=== PATIENT | female | born 1935 | race Caucasian/White ===

== ENCOUNTER 2022-04-16 14:44 | Inpatient (IN) ==
[2022-04-16 15:09] LABS: PCO2 Arterial 53 mmHg (35-45); PO2 Arterial 189 mmHg (80-100)
[2022-04-16 15:58] LABS: ABS Lymphocytes 0.5 10^3/ul (1.0-4.8); ABS Monocytes 1.3 10^3/ul (0-0.8); ABS Neutrophils 17.2 10^3/ul (1.5-7.7); Eosinophil % 0.1 %; Hematocrit 33 % (35-47); Hemoglobin 10.9 g/dL (12.0-16.0); Lymphocyte % 2.4 %; Mean Corpuscular HGB Conc 33 g/dL (31-36); Mean Corpuscular Hemoglobin 34 pg (27-31); Mean Corpuscular Volume 101 fL (80-97); Mean Platelet Volume 7.5 fL (7.4-10.4); Platelet Count 154 10^3/uL (150-450); Red Blood Count 3.26 10^6 /uL (3.70-4.87); Red Cell Distribution Width 14 % (10-15); White Blood Count 18.9 10^3/uL (3.5-10.8)
[2022-04-16 16:33] LABS: Albumin 3.7 g/dL (3.2-5.2); Albumin/Globulin Ratio 1.6 (1-3); Calcium 8.7 mg/dL (8.6-10.3); Globulin 2.3 g/dL (2-4); Potassium 4.7 mmol/L (3.5-5.0); Total Bilirubin 0.9 mg/dL (0.2-1.0); eGFR CKD-EPI 84.5 (>60)
[2022-04-16 17:21] LABS: High Sensitivity Troponin 1 Hr 6 pg/mL (<15)
[2022-04-16] MEDS ORDERED: Piperacillin/Tazobac ADVAN 3.375 GM in NS 0.9% 100 ml BAG 100 ML IV ONE (17:25)
[2022-04-16] MEDS ORDERED: Furosemide 40 mg/4 ml IV VIAL IV SLOW PU ONE (18:27)
[2022-04-16 18:58] LABS: Urine Appearance Clear; Urine Color Orange; Urine Specific Gravity 1.023 (1.002-1.030)
[2022-04-16 19:03] LABS: Urine Bacteria Absent (Absent); Urine Red Blood Cell Trace(0-2/hpf) (Absent); Urine White Blood Cell Trace(0-5/hpf) (Absent)
[2022-04-16 19:57] LABS: C Reactive Protein 89.13 mg/L (<8.01)
[2022-04-16] MEDS ORDERED: Albuterol HFA INHALER 8 gm MDI INH PRN (20:03)
[2022-04-16 20:19] LABS: Magnesium 1.9 mg/dL (1.9-2.7)
[2022-04-16] MEDS ORDERED: Magnesium Sulfate 2 gm BAG 2 GM/50 ML BAG IVPB ONE (20:27)
[2022-04-16] MEDS ORDERED: Enoxaparin 80 MG/0.8 ML SYR SUBCUT SCH (21:00)
[2022-04-17] MEDS: NON FORMULARY MED (Tiotropium Bromide [Spiriva With Handihaler] 18 mcg Capsule, W/Inhalati INH SCH ×2 (00:05→07:36)
[2022-04-17] MEDS: Mometasone/Formoter 100/5 MDI INH SCH ×3 (00:05→19:32)
[2022-04-17 05:11] LABS: ABS Eosinophils 0.1 10^3/ul (0-0.6); ABS Monocytes 1.2 10^3/ul (0-0.8); ABS Neutrophils 10.8 10^3/ul (1.5-7.7); Eosinophil % 0.4 %; Hematocrit 31 % (35-47); Lymphocyte % 7.5 %; Mean Corpuscular HGB Conc 32 g/dL (31-36); Mean Corpuscular Hemoglobin 32 pg (27-31); Mean Corpuscular Volume 99 fL (80-97); Mean Platelet Volume 7.6 fL (7.4-10.4); Platelet Count 150 10^3/uL (150-450); Red Blood Count 3.15 10^6 /uL (3.70-4.87); Red Cell Distribution Width 14 % (10-15); White Blood Count 13.1 10^3/uL (3.5-10.8)
[2022-04-17 05:28] LABS: Urine Appearance Clear; Urine Bilirubin Negative (Negative); Urine Blood Negative (Negative); Urine Color Yellow; Urine Glucose Negative (Negative); Urine Ketones Negative (Negative); Urine Nitrite Positive (Negative); Urine Protein Negative (Negative); Urine Specific Gravity 1.015 (1.005-1.030); Urine Urobilinogen 0.2 (Negative) (Negative); Urine pH 5.5 (5.0-9.0)
[2022-04-17 05:53] LABS: Albumin 3.5 g/dL (3.2-5.2); Albumin/Globulin Ratio 1.8 (1-3); Calcium 8.6 mg/dL (8.6-10.3); Magnesium 2.2 mg/dL (1.9-2.7); Potassium 3.6 mmol/L (3.5-5.0); Total Protein 5.5 g/dL (6.4-8.9); eGFR CKD-EPI 84.8 (>60)
[2022-04-17 06:51] LABS: Urine Bacteria Absent (Absent); Urine Red Blood Cell Trace(0-2/hpf) (Absent); Urine White Blood Cell Absent (Absent)
[2022-04-17] MEDS ORDERED: Potassium Chlor 20 meq TAB.ER PO ONE (07:42)
[2022-04-17] MEDS: SPIRIVA Respimat (tiotropium) 2.5 mcg/inh Inhaler INH SCH (09:00)
[2022-04-17] MEDS: cefTRIAXone 1 gm/50 mL D5W 1 GM/50 ML BAG IV SCH (09:08)
[2022-04-17] MEDS ORDERED: Furosemide 40 mg/4 ml IV VIAL IV ONE (10:59)
[2022-04-17] MEDS: Senna TAB 8.6 mg TAB PO PRN (13:08)
[2022-04-17] MEDS: Albuterol HFA INHALER 8 gm MDI INH SCH ×3 (19:38→22:01)
[2022-04-17] MEDS: Enoxaparin 40 MG/0.4 ML SYR SUBCUT SCH (21:26)
[2022-04-17] MEDS: HYDROcodone/ACETAMIN 5/325 mg TAB PO PRN (21:27)
[2022-04-18 05:16] LABS: ABS Eosinophils 0.1 10^3/ul (0-0.6); ABS Lymphocytes 1.5 10^3/ul (1.0-4.8); ABS Monocytes 0.8 10^3/ul (0-0.8); ABS Neutrophils 6.4 10^3/ul (1.5-7.7); Eosinophil % 1.1 %; Hematocrit 31 % (35-47); Hemoglobin 9.9 g/dL (12.0-16.0); Mean Corpuscular HGB Conc 32 g/dL (31-36); Mean Corpuscular Hemoglobin 32 pg (27-31); Mean Corpuscular Volume 99 fL (80-97); Mean Platelet Volume 7.7 fL (7.4-10.4); Platelet Count 158 10^3/uL (150-450); Red Blood Count 3.13 10^6 /uL (3.70-4.87); Red Cell Distribution Width 14 % (10-15); White Blood Count 8.9 10^3/uL (3.5-10.8)
[2022-04-18] MEDS: Albuterol HFA INHALER 8 gm MDI INH SCH ×4 (05:27→19:42)
[2022-04-18] MEDS: HYDROcodone/ACETAMIN 5/325 mg TAB PO PRN ×3 (05:28→22:35)
[2022-04-18 05:34] LABS: Calcium 8.8 mg/dL (8.6-10.3); Magnesium 1.9 mg/dL (1.9-2.7); Potassium 3.3 mmol/L (3.5-5.0); eGFR CKD-EPI 88.3 (>60)
[2022-04-18] MEDS: SPIRIVA Respimat (tiotropium) 2.5 mcg/inh Inhaler INH SCH (07:11)
[2022-04-18] MEDS: Mometasone/Formoter 100/5 MDI INH SCH ×2 (07:11→19:42)
[2022-04-18] MEDS ORDERED: Magnesium Sulfate IV 1GM/100ML 1 GM/100 ML BAG IV ONE (07:53)
[2022-04-18] MEDS ORDERED: Potassium Chlor 20 meq TAB.ER PO ONE (07:53)
[2022-04-18] MEDS ORDERED: Furosemide 40 mg/4 ml IV VIAL IV ONE (10:00)
[2022-04-18] MEDS: cefTRIAXone 1 gm/50 mL D5W 1 GM/50 ML BAG IV SCH (10:23)
[2022-04-18 17:16] LABS: Calcium 8.7 mg/dL (8.6-10.3); Potassium 4.1 mmol/L (3.5-5.0); eGFR CKD-EPI 85.8 (>60)
[2022-04-18] MEDS: Enoxaparin 40 MG/0.4 ML SYR SUBCUT SCH (22:35)
[2022-04-19] MEDS: Albuterol HFA INHALER 8 gm MDI INH SCH ×4 (01:19→19:05)
[2022-04-19 06:05] LABS: ABS Eosinophils 0.1 10^3/ul (0-0.6); ABS Lymphocytes 1.3 10^3/ul (1.0-4.8); ABS Monocytes 0.6 10^3/ul (0-0.8); ABS Neutrophils 4.8 10^3/ul (1.5-7.7); Eosinophil % 1.1 %; Hematocrit 30 % (35-47); Hemoglobin 10.1 g/dL (12.0-16.0); Lymphocyte % 19.4 %; Mean Corpuscular HGB Conc 34 g/dL (31-36); Mean Corpuscular Hemoglobin 34 pg (27-31); Mean Corpuscular Volume 99 fL (80-97); Mean Platelet Volume 7.4 fL (7.4-10.4); Platelet Count 167 10^3/uL (150-450); Red Cell Distribution Width 13 % (10-15); White Blood Count 6.8 10^3/uL (3.5-10.8)
[2022-04-19 06:21] LABS: Albumin 3.2 g/dL (3.2-5.2); Albumin/Globulin Ratio 1.5 (1-3); Calcium 8.7 mg/dL (8.6-10.3); Globulin 2.1 g/dL (2-4); Potassium 3.6 mmol/L (3.5-5.0); Total Bilirubin 0.4 mg/dL (0.2-1.0); Total Protein 5.3 g/dL (6.4-8.9); eGFR CKD-EPI 88.7 (>60)
[2022-04-19] MEDS: SPIRIVA Respimat (tiotropium) 2.5 mcg/inh Inhaler INH SCH (07:22)
[2022-04-19] MEDS: Mometasone/Formoter 100/5 MDI INH SCH ×2 (07:23→19:05)
[2022-04-19] MEDS: HYDROcodone/ACETAMIN 5/325 mg TAB PO PRN ×2 (09:58→16:34)
[2022-04-19] MEDS ORDERED: Furosemide 40 mg/4 ml IV VIAL IV SLOW PU ONE (14:34)
[2022-04-19] MEDS ORDERED: Potassium Chlor 20 meq TAB.ER PO ONE (14:35)
[2022-04-19] MEDS: Enoxaparin 40 MG/0.4 ML SYR SUBCUT SCH (21:51)
[2022-04-20] MEDS: Albuterol HFA INHALER 8 gm MDI INH SCH ×4 (01:33→19:59)
[2022-04-20] MEDS: HYDROcodone/ACETAMIN 5/325 mg TAB PO PRN ×3 (06:40→21:18)
[2022-04-20 07:04] LABS: Calcium 8.9 mg/dL (8.6-10.3); Magnesium 1.9 mg/dL (1.9-2.7); Potassium 3.9 mmol/L (3.5-5.0); eGFR CKD-EPI 86.8 (>60)
[2022-04-20] MEDS ORDERED: Potassium Chlor 10 meq TAB PO ONE (07:13)
[2022-04-20] MEDS ORDERED: Magnesium Sulfate IV 1GM/100ML 1 GM/100 ML BAG IV ONE (07:13)
[2022-04-20] MEDS: Mometasone/Formoter 100/5 MDI INH SCH ×2 (08:03→19:59)
[2022-04-20] MEDS: SPIRIVA Respimat (tiotropium) 2.5 mcg/inh Inhaler INH SCH (08:03)
[2022-04-20] MEDS ORDERED: Furosemide 40 mg/4 ml IV VIAL IV ONE (09:57)
[2022-04-20] MEDS: Enoxaparin 40 MG/0.4 ML SYR SUBCUT SCH (21:18)
[2022-04-21] MEDS: Albuterol HFA INHALER 8 gm MDI INH SCH ×2 (01:26→07:44)
[2022-04-21] MEDS: SPIRIVA Respimat (tiotropium) 2.5 mcg/inh Inhaler INH SCH (07:43)
[2022-04-21] MEDS: Mometasone/Formoter 100/5 MDI INH SCH (07:44)
[2022-04-21] MEDS ORDERED: Albuterol HFA INHALER 8 gm MDI INH PRN (07:53)
[2022-04-21] MEDS: Senna TAB 8.6 mg TAB PO PRN (08:04)
[2022-04-21] MEDS: HYDROcodone/ACETAMIN 5/325 mg TAB PO PRN (08:04)
[2022-04-21 08:16] VITALS: BP 145/90
[2022-04-21 09:54] LABS: Rapid COVID-19 Molecular Undetected (Undetected)
== END 2022-04-21 13:00 | DRG 189 ==
LOC: ED 14:44 → EDHOLD 14:44 → SUATTDRO 19:28 → MEDTELE 04-17 16:45 → SUATTDRO 04-18 13:45
PROVIDERS: ADMIT Internal Medicine; ATTEND Internal Medicine

== ENCOUNTER 2022-04-26 10:48 | Inpatient (IN) ==
[2022-04-26] MEDS ORDERED: Albuterol HFA INHALER 8 gm MDI INH ONE (11:37)
[2022-04-26 11:40] LABS: PCO2 Arterial 57 mmHg (35-45); PO2 Arterial 197 mmHg (80-100)
[2022-04-26 11:41] LABS: ABS Eosinophils 0.2 10^3/ul (0-0.6); Eosinophil % 1.3 %; Hematocrit 38 % (35-47); Lymphocyte % 5.5 %; Mean Corpuscular HGB Conc 32 g/dL (31-36); Mean Corpuscular Hemoglobin 31 pg (27-31); Mean Corpuscular Volume 98 fL (80-97); Mean Platelet Volume 7.7 fL (7.4-10.4); Platelet Count 305 10^3/uL (150-450); Red Blood Count 3.83 10^6 /uL (3.70-4.87); Red Cell Distribution Width 14 % (10-15); White Blood Count 18.3 10^3/uL (3.5-10.8)
[2022-04-26 11:47] LABS: INR 0.99 (0.89-1.11)
[2022-04-26] MEDS ORDERED: Lactated Ringers 1000 ml BAG 1,000 ML IV ONE (11:53)
[2022-04-26 11:57] LABS: Ammonia 29 mcmol/L (16-53)
[2022-04-26 12:04] LABS: High Sens Troponin Baseline 7 pg/mL (<15)
[2022-04-26 12:10] LABS: ALT 13 U/L (7-52); AST 14 U/L (13-39); Albumin 3.8 g/dL (3.2-5.2); Albumin/Globulin Ratio 1.6 (1-3); Alkaline Phosphatase 108 U/L (35-149); Anion Gap 8 mmol/L (2-11); Blood Urea Nitrogen 12 mg/dL (6-24); C Reactive Protein 59.66 mg/L (<8.01); CO2 Carbon Dioxide 39 mmol/L (22-32); Chloride 93 mmol/L (101-111); Creatine Kinase 39 U/L (10-223); Globulin 2.4 g/dL (2-4); Glucose 126 mg/dL (70-100); Lipase < 10 U/L (11.0-82.0); Magnesium 1.7 mg/dL (1.9-2.7); Potassium 3.2 mmol/L (3.5-5.0); Sodium 140 mmol/L (135-145); Total Protein 6.2 g/dL (6.4-8.9); eGFR CKD-EPI 84.5 (>60)
[2022-04-26] MEDS ORDERED: Iodixanol (CONTRAST) 320 MG/ML 100 ML SDV IV ONE (12:19)
[2022-04-26] MEDS ORDERED: Azithromycin 500 mg/250 ml NS 500 MG/250 ML BAG IVPB ONE (12:41)
[2022-04-26] MEDS ORDERED: cefTRIAXone 1 gm/50 mL D5W 1 GM/50 ML BAG IV ONE (12:41)
[2022-04-26 12:56] LABS: BNP 202 pg/mL (<=100)
[2022-04-26 13:10] LABS: High Sensitivity Troponin 1 Hr 7 pg/mL (<15)
[2022-04-26] MEDS ORDERED: Albuterol/Ipratropium NEB.SOL (2.5/0.5 MG) 3 ML NEB.SOLN INH ONE (16:43)
[2022-04-26] MEDS ORDERED: methylPREDNISolone SOD SUCC 40 mg/ml 1 ml VIAL IV ONE (16:43)
[2022-04-26] MEDS ORDERED: Lactated Ringers 1000 ml BAG 1,000 ML IV SCH (17:00)
[2022-04-26] MEDS ORDERED: Albuterol HFA INHALER 8 gm MDI INH PRN (18:05)
[2022-04-26] MEDS ORDERED: Magnesium Hydroxide LIQ 30 ML UDC PO PRN (18:11)
[2022-04-26 18:55] LABS: Urine Appearance Clear; Urine Bilirubin Negative (Negative); Urine Blood Negative (Negative); Urine Color Yellow; Urine Glucose Negative (Negative); Urine Ketones Negative (Negative); Urine Nitrite Negative (Negative); Urine Protein Negative (Negative); Urine Urobilinogen 0.2 (Negative) (Negative)
[2022-04-26] MEDS ORDERED: Albuterol/Ipratropium NEB.SOL (2.5/0.5 MG) 3 ML NEB.SOLN INH SCH (19:00)
[2022-04-26] MEDS: Mometasone/Formoter 200/5 MDI INH SCH (20:08)
[2022-04-26] MEDS: Enoxaparin 30 MG/0.3 ML SYR SUBCUT SCH (20:23)
[2022-04-26] MEDS ORDERED: Magnesium Sulfate 2 gm BAG 2 GM/50 ML BAG IVPB ONE (22:34)
[2022-04-26] MEDS: KCL 20 MEQ/100 ML IVPREMIX 20 MEQ/100 ML BAG IV SCH (23:32)
[2022-04-27] MEDS: KCL 20 MEQ/100 ML IVPREMIX 20 MEQ/100 ML BAG IV SCH ×2 (01:50→03:56)
[2022-04-27] MEDS ORDERED: Lactated Ringers 1000 ml BAG 1,000 ML IV SCH (06:17)
[2022-04-27 06:28] LABS: ABS Lymphocytes 0.5 10^3/ul (1.0-4.8); ABS Monocytes 0.8 10^3/ul (0-0.8); ABS Neutrophils 14.4 10^3/ul (1.5-7.7); Hematocrit 33 % (35-47); Hemoglobin 10.4 g/dL (12.0-16.0); Lymphocyte % 3.4 %; Mean Corpuscular HGB Conc 32 g/dL (31-36); Mean Corpuscular Hemoglobin 32 pg (27-31); Mean Corpuscular Volume 99 fL (80-97); Mean Platelet Volume 7.9 fL (7.4-10.4); Platelet Count 238 10^3/uL (150-450); Red Blood Count 3.27 10^6 /uL (3.70-4.87); Red Cell Distribution Width 13 % (10-15); White Blood Count 15.8 10^3/uL (3.5-10.8)
[2022-04-27 06:44] LABS: Blood Urea Nitrogen 14 mg/dL (6-24); CO2 Carbon Dioxide 33 mmol/L (22-32); Calcium 8.8 mg/dL (8.6-10.3); Chloride 93 mmol/L (101-111); Glucose 233 mg/dL (70-100); Sodium 141 mmol/L (135-145); eGFR CKD-EPI 84.5 (>60)
[2022-04-27 06:50] LABS: Anion Gap 15 mmol/L (2-11)
[2022-04-27] MEDS ORDERED: Albuterol 2.5mg/3 ml (0.083%) NEB.SOLN INH SCH (07:00)
[2022-04-27] MEDS: Mometasone/Formoter 200/5 MDI INH SCH ×2 (07:15→19:22)
[2022-04-27] MEDS: SPIRIVA Respimat (tiotropium) 2.5 mcg/inh Inhaler INH SCH (07:16)
[2022-04-27] MEDS: oxyCODONE SR 10 mg TAB PO SCH ×2 (09:54→20:38)
[2022-04-27 09:59] LABS: Potassium 3.3 mmol/L (3.5-5.0)
[2022-04-27] MEDS ORDERED: cefTRIAXone 1 gm/50 mL D5W 1 GM/50 ML BAG IV SCH (13:00)
[2022-04-27] MEDS: Azithromycin 500 mg/250 ml NS 500 MG/250 ML BAG IVPB SCH ×2 (14:03→15:23)
[2022-04-27 15:49] LABS: Magnesium 2.3 mg/dL (1.9-2.7)
[2022-04-27] MEDS: Enoxaparin 30 MG/0.3 ML SYR SUBCUT SCH (16:52)
[2022-04-27] MEDS ORDERED: Potassium Chloride LIQUID 20 MEQ/15 ML LIQUID PO ONE (18:15)
[2022-04-28 06:08] LABS: ABS Lymphocytes 1.2 10^3/ul (1.0-4.8); ABS Neutrophils 11.4 10^3/ul (1.5-7.7); Eosinophil % 0.1 %; Hematocrit 29 % (35-47); Hemoglobin 9.3 g/dL (12.0-16.0); Mean Corpuscular HGB Conc 32 g/dL (31-36); Mean Corpuscular Hemoglobin 31 pg (27-31); Mean Corpuscular Volume 97 fL (80-97); Nucleated Red Blood Cells % 0.1; Platelet Count 213 10^3/uL (150-450); Red Blood Count 2.96 10^6 /uL (3.70-4.87); Red Cell Distribution Width 13 % (10-15); White Blood Count 13.7 10^3/uL (3.5-10.8)
[2022-04-28 06:19] LABS: Calcium 8.6 mg/dL (8.6-10.3); Potassium 3.5 mmol/L (3.5-5.0); eGFR CKD-EPI 85.8 (>60)
[2022-04-28] MEDS: SPIRIVA Respimat (tiotropium) 2.5 mcg/inh Inhaler INH SCH (07:18)
[2022-04-28] MEDS: Mometasone/Formoter 200/5 MDI INH SCH (07:18)
[2022-04-28] MEDS ORDERED: Potassium Chlor 20 meq TAB.ER PO SCH (09:00)
[2022-04-28] MEDS: oxyCODONE SR 10 mg TAB PO SCH (10:17)
[2022-04-28 11:54] VITALS: BP 117/60
== END 2022-04-28 13:30 | DRG 194 ==
LOC: ED 10:48 → EDHOLD 16:48 → SUATTDRO 16:48 → MEDTELE 21:07
PROVIDERS: ADMIT Internal Medicine; ATTEND Internal Medicine

== ENCOUNTER 2022-06-29 18:21 | Inpatient (IN) ==
[2022-06-29 18:52] LABS: ABS Basophils 0.1 10^3/ul (0-0.2); ABS Eosinophils 0.1 10^3/ul (0-0.6); ABS Lymphocytes 2.1 10^3/ul (1.0-4.8); ABS Monocytes 1.1 10^3/ul (0-0.8); ABS Neutrophils 9.2 10^3/ul (1.5-7.7); Eosinophil % 0.7 %; Hematocrit 39 % (35-47); Hemoglobin 12.5 g/dL (12.0-16.0); Lymphocyte % 16.8 %; Mean Corpuscular HGB Conc 32 g/dL (31-36); Mean Corpuscular Hemoglobin 29 pg (27-31); Mean Corpuscular Volume 89 fL (80-97); Mean Platelet Volume 8.1 fL (7.4-10.4); Platelet Count 354 10^3/uL (150-450); Red Blood Count 4.34 10^6 /uL (3.70-4.87); Red Cell Distribution Width 15 % (10-15); White Blood Count 12.6 10^3/uL (3.5-10.8)
[2022-06-29 19:00] LABS: Activated Partial Thrombo Time 31.9 seconds (26.0-38.0); INR 1.1 (0.89-1.11)
[2022-06-29 19:34] LABS: Albumin 3.3 g/dL (3.2-5.2); Albumin/Globulin Ratio 1.1 (1-3); C Reactive Protein 29.27 mg/L (<8.01); Calcium 9.1 mg/dL (8.6-10.3); Globulin 2.9 g/dL (2-4); Potassium 4.1 mmol/L (3.5-5.0); Total Bilirubin 0.7 mg/dL (0.2-1.0); Total Protein 6.2 g/dL (6.4-8.9); eGFR CKD-EPI 87.2 (>60)
[2022-06-29] MEDS ORDERED: methylPREDNISolone SOD SUCC 125 mg 2 ML VIAL IV ONE (19:35)
[2022-06-29] MEDS ORDERED: Levalbuterol 1.25MG/0.5ML NEB.SOL INH ONE (19:37)
[2022-06-29] MEDS ORDERED: Iohexol 350 (CONTRAST) 500 ML MDV IV ONE (20:21)
[2022-06-29 20:23] LABS: High Sensitivity Troponin 1 Hr 5 pg/mL (<15)
[2022-06-30] MEDS: Enoxaparin 40 MG/0.4 ML SYR SUBCUT SCH ×2 (00:08→20:36)
[2022-06-30] MEDS: cefTRIAXone 1 gm/50 mL D5W 1 GM/50 ML BAG IV SCH (04:03)
[2022-06-30 06:51] LABS: Hematocrit 34 % (35-47); Hemoglobin 11.3 g/dL (12.0-16.0); Mean Corpuscular HGB Conc 33 g/dL (31-36); Mean Corpuscular Hemoglobin 30 pg (27-31); Mean Corpuscular Volume 89 fL (80-97); Mean Platelet Volume 7.8 fL (7.4-10.4); Platelet Count 295 10^3/uL (150-450); Red Blood Count 3.82 10^6 /uL (3.70-4.87); Red Cell Distribution Width 15 % (10-15); White Blood Count 6.6 10^3/uL (3.5-10.8)
[2022-06-30 07:40] LABS: Albumin 2.6 g/dL (3.2-5.2); Calcium 7.8 mg/dL (8.6-10.3); Globulin 2.5 g/dL (2-4); Magnesium 1.3 mg/dL (1.9-2.7); Potassium 4.5 mmol/L (3.5-5.0); Total Bilirubin 0.4 mg/dL (0.2-1.0); Total Protein 5.1 g/dL (6.4-8.9); eGFR CKD-EPI 86.8 (>60)
[2022-06-30 08:10] LABS: Urine Appearance Cloudy; Urine Bilirubin Negative (Negative); Urine Blood Negative (Negative); Urine Color Amber; Urine Glucose Negative (Negative); Urine Ketones Negative (Negative); Urine Nitrite Negative (Negative); Urine Protein 1+(30 mg/dL) (Negative); Urine Urobilinogen Negative (Negative)
[2022-06-30 08:22] LABS: Urine Bacteria Absent (Absent); Urine Red Blood Cell 3+(>10/hpf) (Absent); Urine Squamous Epithelial Cell Present (Absent); Urine White Blood Cell 2+(11-20/hpf) (Absent)
[2022-06-30] MEDS ORDERED: Magnesium Sulf 4 GM/100 ML IV 4,000 MG/100 ML BAG IVPB ONE (08:34)
[2022-06-30] MEDS ORDERED: Albuterol 2.5mg/3 ml (0.083%) NEB.SOLN INH PRN (08:40)
[2022-06-30] MEDS: Senna TAB 8.6 mg TAB PO SCH ×2 (09:00→20:40)
[2022-06-30] MEDS ORDERED: Senna/Docusate 8.6/50 mg (NF) TAB PO SCH (09:00)
[2022-06-30] MEDS: oxyCODONE SR 10 mg TAB PO SCH ×2 (09:02→20:35)
[2022-06-30] MEDS: Potassium Chlor 20 meq TAB.ER PO SCH (09:05)
[2022-06-30] MEDS: SPIRIVA Respimat (tiotropium) 2.5 mcg/inh Inhaler INH SCH (09:38)
[2022-06-30] MEDS: Mometasone/Formoter 200/5 MDI INH SCH ×2 (09:38→21:04)
[2022-06-30] MEDS ORDERED: Levalbuterol 1.25MG/0.5ML NEB.SOL INH PRN (14:47)
[2022-07-01] MEDS: cefTRIAXone 1 gm/50 mL D5W 1 GM/50 ML BAG IV SCH (04:51)
[2022-07-01 06:51] LABS: ABS Lymphocytes 1.3 10^3/ul (1.0-4.8); ABS Monocytes 0.9 10^3/ul (0-0.8); ABS Neutrophils 7.6 10^3/ul (1.5-7.7); Hematocrit 33 % (35-47); Hemoglobin 10.9 g/dL (12.0-16.0); Lymphocyte % 13.4 %; Mean Corpuscular HGB Conc 33 g/dL (31-36); Mean Corpuscular Hemoglobin 29 pg (27-31); Mean Corpuscular Volume 89 fL (80-97); Mean Platelet Volume 7.9 fL (7.4-10.4); Platelet Count 309 10^3/uL (150-450); Red Blood Count 3.72 10^6 /uL (3.70-4.87); Red Cell Distribution Width 15 % (10-15); White Blood Count 9.8 10^3/uL (3.5-10.8)
[2022-07-01 07:35] LABS: Albumin 2.8 g/dL (3.2-5.2); Albumin/Globulin Ratio 1.1 (1-3); Calcium 8.6 mg/dL (8.6-10.3); Globulin 2.5 g/dL (2-4); Potassium 3.5 mmol/L (3.5-5.0); Total Bilirubin 0.4 mg/dL (0.2-1.0); Total Protein 5.3 g/dL (6.4-8.9); eGFR CKD-EPI 86.1 (>60)
[2022-07-01] MEDS: Mometasone/Formoter 200/5 MDI INH SCH (08:20)
[2022-07-01] MEDS: SPIRIVA Respimat (tiotropium) 2.5 mcg/inh Inhaler INH SCH (08:21)
[2022-07-01] MEDS: Senna TAB 8.6 mg TAB PO SCH ×2 (10:07→21:05)
[2022-07-01] MEDS: oxyCODONE SR 10 mg TAB PO SCH ×2 (10:08→21:05)
[2022-07-01] MEDS: Potassium Chlor 20 meq TAB.ER PO SCH (10:09)
[2022-07-01 10:48] LABS: Magnesium 2.4 mg/dL (1.9-2.7)
[2022-07-01] MEDS ORDERED: Potassium Chlor 20 meq TAB.ER PO ONE (18:28)
[2022-07-01] MEDS: Enoxaparin 40 MG/0.4 ML SYR SUBCUT SCH (21:08)
[2022-07-02] MEDS: Mometasone/Formoter 200/5 MDI INH SCH ×3 (00:01→19:49)
[2022-07-02] MEDS: cefTRIAXone 1 gm/50 mL D5W 1 GM/50 ML BAG IV SCH (06:18)
[2022-07-02 07:11] LABS: ABS Lymphocytes 1.2 10^3/ul (1.0-4.8); ABS Monocytes 0.8 10^3/ul (0-0.8); ABS Neutrophils 6.1 10^3/ul (1.5-7.7); Eosinophil % 0.2 %; Hematocrit 33 % (35-47); Hemoglobin 10.6 g/dL (12.0-16.0); Lymphocyte % 14.8 %; Mean Corpuscular HGB Conc 33 g/dL (31-36); Mean Corpuscular Hemoglobin 29 pg (27-31); Mean Corpuscular Volume 90 fL (80-97); Mean Platelet Volume 8.1 fL (7.4-10.4); Platelet Count 289 10^3/uL (150-450); Red Blood Count 3.62 10^6 /uL (3.70-4.87); Red Cell Distribution Width 15 % (10-15); White Blood Count 8.2 10^3/uL (3.5-10.8)
[2022-07-02] MEDS ORDERED: Potassium Chlor 20 meq TAB.ER PO ONE ×2 (07:23→11:00)
[2022-07-02 07:45] LABS: Calcium 8.8 mg/dL (8.6-10.3); Potassium 4.2 mmol/L (3.5-5.0); eGFR CKD-EPI 88.3 (>60)
[2022-07-02] MEDS: SPIRIVA Respimat (tiotropium) 2.5 mcg/inh Inhaler INH SCH (08:25)
[2022-07-02] MEDS: Senna TAB 8.6 mg TAB PO SCH ×2 (09:30→21:00)
[2022-07-02] MEDS: oxyCODONE SR 10 mg TAB PO SCH ×2 (09:31→21:00)
[2022-07-02 16:37] LABS: Rapid COVID-19 Molecular Undetected (Undetected)
[2022-07-02] MEDS: Enoxaparin 40 MG/0.4 ML SYR SUBCUT SCH (21:01)
[2022-07-03] MEDS: cefTRIAXone 1 gm/50 mL D5W 1 GM/50 ML BAG IV SCH (06:22)
[2022-07-03] MEDS: Mometasone/Formoter 200/5 MDI INH SCH (07:20)
[2022-07-03] MEDS: SPIRIVA Respimat (tiotropium) 2.5 mcg/inh Inhaler INH SCH (07:20)
[2022-07-03 07:22] LABS: Hematocrit 34 % (35-47); Mean Corpuscular HGB Conc 33 g/dL (31-36); Mean Corpuscular Hemoglobin 29 pg (27-31); Mean Corpuscular Volume 90 fL (80-97); Mean Platelet Volume 8.1 fL (7.4-10.4); Platelet Count 274 10^3/uL (150-450); Red Blood Count 3.74 10^6 /uL (3.70-4.87); Red Cell Distribution Width 15 % (10-15); White Blood Count 9.9 10^3/uL (3.5-10.8)
[2022-07-03 07:38] LABS: Blood Urea Nitrogen 10 mg/dL (6-24); CO2 Carbon Dioxide 30 mmol/L (22-32); Calcium 8.9 mg/dL (8.6-10.3); Chloride 98 mmol/L (101-111); Glucose 85 mg/dL (70-100); Sodium 134 mmol/L (135-145); eGFR CKD-EPI 86.8 (>60)
[2022-07-03 07:41] LABS: Anion Gap 6 mmol/L (2-11)
[2022-07-03 08:42] LABS: ABS Lymphocytes 1.8 10^3/ul (1.0-4.8); Eosinophil % 0.1 %; Lymphocyte % 18.4 %
[2022-07-03] MEDS: oxyCODONE SR 10 mg TAB PO SCH (08:54)
[2022-07-03] MEDS: Senna TAB 8.6 mg TAB PO SCH (08:56)
[2022-07-03] MEDS ORDERED: Potassium Chlor 20 meq TAB.ER PO SCH (09:00)
[2022-07-03 09:27] VITALS: BP 111/74
[2022-07-03 11:13] LABS: Magnesium 1.7 mg/dL (1.9-2.7); Potassium Redraw 4.2 mmol/L (3.5-5.0)
== END 2022-07-03 11:55 | DRG 871 ==
LOC: EDHOLD 18:21 → ED 18:21 → EDHOLD 06-30 14:15 → MEDTELE 06-30 15:57 → SUATTDRO 06-30 16:47
PROVIDERS: ADMIT Internal Medicine; ATTEND Internal Medicine